=== PATIENT | female | born 2000 | race Caucasian/White ===

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

== ENCOUNTER 2022-12-04 18:57 | Emergency (ER) | payer SELFPAY ==
[~2022-12-04] VITALS: Ht 152.4 cm; Wt 65.8 kg
[2022-12-04] MEDS ORDERED: IBUPROFEN 600 MG TAB PO ONE (19:40)
[2022-12-04] MEDS ORDERED: IBUPROFEN 600 MG TAB ONE (20:14)
[2022-12-04] MEDS ORDERED: AMOXICILLI250 MG/5 M PO (20:34)
[2022-12-04 20:54] VITALS: BP 134/59
== END 2022-12-04 20:54 | disposition home or self-care (01) ==
LOC: FSED 19:22
DX: R50.9 Fever, unspecified (principal); J02.9 Acute pharyngitis, unspecified; J45.901 Unspecified asthma with (acute) exacerbation
CPT/HCPCS: 83518; 87400; 99283

== ENCOUNTER 2024-11-16 18:47 | Emergency (ER) | payer BC ==
[~2024-11-16] VITALS: Ht 152.4 cm; Wt 65.8 kg
[2024-11-16 18:47] VITALS: PULSE 77; RESP 18; TEMP 98.2; O2SAT 97
[~2024-11-16 18:47] MED LIST: AMOXICILLI250 MG/5 M PO
[2024-11-16] MEDS: SODIUM CHLORIDE 0.9% 1000ML 1,000 ML IV ONE (20:45)
[2024-11-16] MEDS: LORAZEPAM INJ 2 MG/ML VIAL IV ONE (21:51)
[2024-11-16] MEDS ORDERED: IOPAMIDOL 370 MG/ML 100 ML INFUS..BTL INJ ONE (21:54)
[2024-11-16 22:00] VITALS: BP 125/64; PULSE 76; RESP 18; TEMP 98.2
[2024-11-17] MEDS: ONDANSETRON HCL INJ 2MG/ML 2ML 2 MG/ML VIAL IV STA (01:19)
== END 2024-11-16 22:00 | disposition home or self-care (01) ==
LOC: FSED 19:16
DX: R00.2 Palpitations (principal); E86.0 Dehydration; F41.9 Anxiety disorder, unspecified; J45.909 Unspecified asthma, uncomplicated; M41.9 Scoliosis, unspecified; Z11.52 Encounter for screening for COVID-19
CPT/HCPCS: 0223U; 71260; 80053; 81003; 81025; 84484; 85025; 87400; 93005; 99283; J7030; Q9967